=== PATIENT | male | born 1945 | race Caucasian/White ===

== ENCOUNTER 2024-09-25 14:14 | Inpatient (IN) | payer MEDICARE ==
[2024-09-25] MEDS ORDERED: Aluminum Hydroxide/Magnesium Hydroxide/Simethicone Susp 30 ML Cup PO PRN (16:44)
[2024-09-25] MEDS ORDERED: Bisacodyl 10 MG Supp RECTAL PRN (16:46)
[2024-09-25] MEDS ORDERED: Lactulose Soln 10 GM/15 ML 15 ML UD Cup PO PRN (16:48)
[2024-09-25] MEDS ORDERED: Magnesium Hydroxide 400 MG/5 ML Susp 30 ML Cup PO PRN (16:55)
[2024-09-25] MEDS ORDERED: Metoclopramide 10 MG Tab PO PRN (16:57)
[2024-09-25] MEDS ORDERED: Ondansetron 4 MG Tab.DIS PO PRN (16:59)
[2024-09-25] MEDS ORDERED: oxyCODONE 5 MG Tab PO PRN (16:59)
[2024-09-25] MEDS: traMADol 50 MG Tab PO PRN (20:54)
[2024-09-25] MEDS: Sennosides/Docusate Sodium 50-8.6 MG Tab PO PRN (20:54)
[2024-09-25] MEDS: Cyclobenzaprine 10 MG Tab PO PRN (20:54)
[2024-09-26] MEDS ORDERED: Losartan 50 MG Tab PO SCH (08:00)
[2024-09-26] MEDS: Enoxaparin 40 MG/0.4 ML Syringe SUBCUT SCH (10:16)
[2024-09-26] MEDS: Nicotine 21 MG/24 Hr Patch TRDERM SCH (10:16)
[2024-09-26] MEDS: Hydrochlorothiazide 12.5 MG Cap PO SCH (10:17)
[2024-09-26] MEDS: Tamsulosin 0.4 MG Cap.ER PO SCH (19:33)
[2024-09-26] MEDS: Sennosides/Docusate Sodium 50-8.6 MG Tab PO PRN (19:34)
[2024-09-27 01:38] LABS: APPEARANCE,URINE CLEAR (CLEAR); COLOR,URINE YELLOW; GLUCOSE,URINE NEGATIVE (NEGATIVE); KETONES,URINE NEGATIVE (NEGATIVE); PROTEIN,URINE NEGATIVE (NEGATIVE)
[2024-09-27 01:39] LABS: BILIRUBIN,URINE NEGATIVE (NEGATIVE); LEUKOCYTE ESTERASE,URINE NEGATIVE (NEGATIVE); NITRITE,URINE NEGATIVE (NEGATIVE); OCCULT BLOOD,URINE NEGATIVE (NEGATIVE); UROBILINOGEN,URINE 0.2 E.U./dL (0.2-1.0)
[2024-09-28] MEDS: Acetaminophen 500 MG Tab PO PRN (08:03)
[2024-09-28] MEDS: VALSARTAN HYDROCHLOROTHIAZIDE PO SCH (08:05)
[2024-09-28] MEDS: Cyclobenzaprine 10 MG Tab PO SCH (13:12)
[2024-09-29] MEDS: Tuberculin, PPD 5 Units/0.1 ML 1 ML MDV IDERM ONE (08:11)
[2024-09-29] MEDS: Cyclobenzaprine 5 MG Tab PO SCH (08:12)
[2024-09-29 16:01] LABS: ANION GAP 10.7 mmol/L (5.0-15.0); BUN/CREATININE RATIO 35.8 (6-25); CALCIUM 8.9 mg/dL (8.5-10.1); CARBON DIOXIDE,CO2 30.1 mmol/L (21.0-32.0); CREATININE 1.06 mg/dL (0.70-1.30); EST CRCL DRUG DOSING (CG) 59.99 mL/min; POTASSIUM,K 4.8 mmol/L (3.5-5.1)
[2024-09-29] MEDS: Cyclobenzaprine 5 MG Tab ONE (20:20)
[2024-09-30] MEDS: Sennosides/Docusate Sodium 50-8.6 MG Tab PO SCH (19:46)
[2024-10-01] MEDS: Oxybutynin 5 MG Tab PO SCH (10:37)
[2024-10-02] MEDS: Nicotine 14 MG/24 Hr Patch TRDERM SCH (08:36)
[2024-10-02] MEDS: Ibuprofen 400 MG Tab PO PRN (13:05)
[2024-10-02 14:12] LABS: APPEARANCE,URINE CLEAR (CLEAR); COLOR,URINE YELLOW; OCCULT BLOOD,URINE NEGATIVE (NEGATIVE); PH,URINE 5.5 (5.0-8.0); PROTEIN,URINE NEGATIVE (NEGATIVE)
[2024-10-02 14:13] LABS: BILIRUBIN,URINE NEGATIVE (NEGATIVE); GLUCOSE,URINE NEGATIVE (NEGATIVE); KETONES,URINE NEGATIVE (NEGATIVE); LEUKOCYTE ESTERASE,URINE NEGATIVE (NEGATIVE); NITRITE,URINE NEGATIVE (NEGATIVE)
[2024-10-09] MEDS ORDERED: Nicotine 7 MG/24 Hr Patch TRDERM SCH (07:00)
[2024-10-09] MEDS: Nicotine 7 MG/24 Hr Patch TRDERM SCH (07:21)
[2024-10-10] MEDS: Tuberculin, PPD 5 Units/0.1 ML 1 ML MDV IDERM ONE (15:52)
[2024-10-11 08:21] LABS: BASOPHILS ABSOLUTE AUTO 0.02 K/uL (0.02-0.10); BASOPHILS PERCENT AUTO 0.3 % (0.0-0.5); EOSINOPHILS ABSOLUTE AUTO 0.13 K/uL (0.04-0.40); EOSINOPHILS PERCENT AUTO 1.7 % (1.0-5.0); HEMATOCRIT 31.6 % (40.0-54.0); HEMOGLOBIN 10.1 g/dL (13.0-18.0); LYMPHOCYTES ABSOLUTE AUTO 1.61 K/uL (1.50-4.00); LYMPHOCYTES PERCENT AUTO 20.5 % (20.0-40.0); MEAN CORPUSCULAR HEMOGLOBIN 30.1 pg (27.0-32.0); MEAN CORPUSCULAR VOLUME 94 fL (76-96); MEAN PLATELET VOLUME 9.9 fL (6.0-10.0); MONOCYTES ABSOLUTE AUTO 0.36 K/uL (0.20-0.80); MONOCYTES PERCENT AUTO 4.6 % (3.0-10.0); NEUTROPHILS ABSOLUTE AUTO 5.72 K/uL (2.00-7.50); NEUTROPHILS PERCENT AUTO 72.9 % (45.0-70.0); PLATELET COUNT,PLT 307 K/uL (150-400); RED BLOOD CELL COUNT 3.35 M/uL (4.50-6.50); RED CELL DISTRIBUTION WIDTH 14.3 % (11.0-16.0); WHITE BLOOD CELL COUNT,WBC 7.8 K/uL (4.0-11.0)
[2024-10-11 08:39] LABS: A/G RATIO 0.9 (0.8-2.0); ANION GAP 14.4 mmol/L (5.0-15.0); BILIRUBIN TOTAL 0.7 mg/dL (0.0-1.0); BUN/CREATININE RATIO 29.3 (6-25); CALCIUM 9.1 mg/dL (8.5-10.1); CREATININE 1.16 mg/dL (0.70-1.30); EST CRCL DRUG DOSING (CG) 49.87 mL/min; POTASSIUM,K 4.4 mmol/L (3.5-5.1); PROTEIN TOTAL,TP 6.5 g/dL (6.4-8.2)
[2024-10-14] MEDS: Sertraline 25 MG Tab PO SCH (10:35)
[2024-10-14] MEDS: Tamsulosin 0.4 MG Cap.ER PO SCH (10:35)
[2024-10-14 12:00] LABS: APPEARANCE,URINE CLEAR (CLEAR); COLOR,URINE YELLOW; GLUCOSE,URINE NEGATIVE (NEGATIVE); PH,URINE 5.5 (5.0-8.0); PROTEIN,URINE NEGATIVE (NEGATIVE)
[2024-10-14 12:01] LABS: BILIRUBIN,URINE NEGATIVE (NEGATIVE); KETONES,URINE NEGATIVE (NEGATIVE); LEUKOCYTE ESTERASE,URINE NEGATIVE (NEGATIVE); NITRITE,URINE NEGATIVE (NEGATIVE); OCCULT BLOOD,URINE SMALL (NEGATIVE); SQUAMOUS EPITHELIAL CELLS,UR OCCASIONAL /HPF; UROBILINOGEN,URINE 0.2 E.U./dL (0.2-1.0); WBC,URINE 0-5 /HPF
[2024-10-15] MEDS: Valsartan 40 MG Tab PO SCH (07:15)
[2024-10-15] MEDS ORDERED: Valsartan 40 MG Tab PO SCH (08:00)
[2024-10-15] MEDS: Cyclobenzaprine 5 MG Tab PO PRN (19:37)
[2024-10-21] MEDS: VALSARTAN 160 MG PO SCH (09:27)
[2024-11-05 08:32] LABS: BASOPHILS ABSOLUTE AUTO 0.01 K/uL (0.02-0.10); BASOPHILS PERCENT AUTO 0.1 % (0.0-0.5); EOSINOPHILS ABSOLUTE AUTO 0.21 K/uL (0.04-0.40); EOSINOPHILS PERCENT AUTO 2.1 % (1.0-5.0); HEMATOCRIT 35.4 % (40.0-54.0); HEMOGLOBIN 11.4 g/dL (13.0-18.0); LYMPHOCYTES ABSOLUTE AUTO 3.04 K/uL (1.50-4.00); LYMPHOCYTES PERCENT AUTO 29.7 % (20.0-40.0); MEAN CORPUSCULAR HEMOGLOBIN 30.2 pg (27.0-32.0); MEAN CORPUSCULAR HGB CONC 32.2 g/dL (31.0-35.0); MEAN CORPUSCULAR VOLUME 94 fL (76-96); MONOCYTES ABSOLUTE AUTO 0.77 K/uL (0.20-0.80); MONOCYTES PERCENT AUTO 7.5 % (3.0-10.0); NEUTROPHILS PERCENT AUTO 60.6 % (45.0-70.0); PLATELET COUNT,PLT 241 K/uL (150-400); RED BLOOD CELL COUNT 3.78 M/uL (4.50-6.50); RED CELL DISTRIBUTION WIDTH 14.2 % (11.0-16.0); WHITE BLOOD CELL COUNT,WBC 10.2 K/uL (4.0-11.0)
[2024-11-05 08:44] LABS: A/G RATIO 0.9 (0.8-2.0); ALBUMIN 3.3 g/dL (3.4-5.0); ANION GAP 11.9 mmol/L (5.0-15.0); BILIRUBIN TOTAL 0.5 mg/dL (0.0-1.0); BUN/CREATININE RATIO 23.5 (6-25); CARBON DIOXIDE,CO2 28.5 mmol/L (21.0-32.0); CREATININE 1.02 mg/dL (0.70-1.30); EST CRCL DRUG DOSING (CG) 59.61 mL/min; POTASSIUM,K 4.4 mmol/L (3.5-5.1); PROTEIN TOTAL,TP 6.9 g/dL (6.4-8.2)
[2024-11-09] MEDS: Mirabegron 25 MG Tab Extended Release PO SCH (10:29)
== END 2024-11-12 14:50 | disposition home or self-care (01) | DRG 561 ==
LOC: LB.MS 17:00
PROVIDERS: ADMIT Emergency Medicine; ATTEND Surgery
DX: S72.001D Fracture of unspecified part of neck of right femur, subsequent encounter for closed fracture with routine healing (principal); M97.01XD Periprosthetic fracture around internal prosthetic right hip joint, subsequent encounter; R53.81 Other malaise; H54.3 Unqualified visual loss, both eyes; H91.90 Unspecified hearing loss, unspecified ear; F17.210 Nicotine dependence, cigarettes, uncomplicated; Z96.642 Presence of left artificial hip joint; I10 Essential (primary) hypertension; N40.1 Benign prostatic hyperplasia with lower urinary tract symptoms; D64.9 Anemia, unspecified; Z74.1 Need for assistance with personal care; R13.10 Dysphagia, unspecified
CPT/HCPCS: 36415; 51702; 51798; 73502-LT; 73552-LT; 73560-LT; 80048; 80053; 81001; 81003; 85025; 86580; 92507-GN; 92523-GN; 92526-GN; 92610-GN; 97110-GO; 97110-GP; 97116-GP; 97162-GP; 97166-GO; 97530-GO; 97530-GP; 97535-GO; 99304; 99307; 99308; 99315; A4338; A9270-GY; J1650; U0002

== ENCOUNTER 2024-11-12 23:03 | Emergency (ER) | payer MEDICARE | END 2024-11-13 00:08 | disposition home or self-care (01) | LOC: LB.ED 23:03 | DX: T83.84XA Pain due to genitourinary prosthetic devices, implants and grafts, initial encounter (principal); I10 Essential (primary) hypertension; Y84.6 Urinary catheterization as the cause of abnormal reaction of the patient, or of later complication, without mention of misadventure at the time of the procedure | CPT/HCPCS: 51702; 99283; C1758 ==